=== PATIENT | female | born 1985 | race Caucasian/White ===

== ENCOUNTER 2021-10-24 00:21 | Day surgery (SDC) | payer OTHER, SELFPAY ==
[2021-10-18 15:11] VITALS: BMI 21.2
--- NOTE | 2021-10-18 15:41 | PC.NURSE ---
Addendum entered by Brianne Box RN 10/18/21 16:35: Instructions given to Christina Del RosarioJamilaFrieda Velasquez Original Note: Report to the Outpatient Waiting Room, entrance under the green pavilion located off [facility], at 1000 on 10-24-2021. OR Time: 1200. - You and your visitor will be asked a series of questions to screen for COVID 19 for your protection. - Only one visitor is allowed at this time. - The patient visitor is requested to leave or wait in car when not with patient. - A mask is required within the hospital. Patients may have clear liquids (water, carbonated beverages, clear teas, apple juice) until 3 hours prior to surgery with a maximum of 20 ounces. - No food from midnight until time of surgery - Infants may have breast milk until 4 hours before surgery, infant formula 6 hours prior to surgery. - Children will be allowed to drink immediately following surgery. If applicable, please bring a bottle or sippy cup to assist with drinking. Juice, water, soda, and popsicles are readily available. For infants on formula, please bring formula the day of surgery. Pacifiers are allowed. Take the following medications with a SIP of water the morning of surgery: tylenol if needed Medications to discontinue per physician: vitamins and supplements; ibuprofen Date to take last dose: 10-21-21; per Dr. Lopez Please no make-up, nail hungarian, hairspray, perfume, deodorant, or body powder the day of surgery. No jewelry (including any body piercings) or valuables the day of surgery, leave them at home. Please take a shower or bath the night before, or the morning of, surgery with an antibacterial soap. Wear comfortable, loose fitting clothing. Children are encouraged to wear pajamas. - Jewelry must be removed prior to entering the operating room. Rings and piercings that are not removed may be cut off. - The hospital will not accept responsibility for valuables. - Please leave all valuables, including medications, at home the day of surgery. If you are going home after surgery, a licensed reefer truck driver must drive you home. - NO public transportation without another adult. - We recommend that an adult stay with you for 24 hours following discharge. - We also recommend that you do not drive, make important decision, drink alcoholic beverages, or take any drugs that were not prescribed by your health care provider for at least 24 hours after your discharge time. For Pediatric surgeries, we recommend two adults accompany the child home (only one inside the building at this time). Follow any additional instructions given to you from your surgeon. If you or anyone in your household have experienced Covid symptoms in the past week, please notify your surgeon or the nurse liaison at the phone number below for possible testing. Telephone instructions given to and asked if any additional questions and then verbalized understanding. Patient advised to call surgeon office or pre surgery nurse liaison [phone] if any additional questions.
[2021-10-24 10:35] VITALS: BP 112/76; PULSE 79; RESP 16; TEMP 36.6; O2SAT 100
[2021-10-24] MEDS: ACETAMINOPHEN 500 MG TABLET 1000 MG PO (11:07)
[2021-10-24] MEDS: LACTATED RINGERS 1,000 ML 30 ML IV CONT (11:19)
--- NOTE | 2021-10-24 11:38 | PM.IMHP ---
H&P: HPI History of Present Illness Date/Time: 10/24/21 11:38 Chief Complaint: Heavy periods Narrative: 36 y/o nulligravida with heavy menses. An ultrasound exam is suggestive of endometrial polyps. She is here for hysteroscopy and D&C and possible polypectomy. Review of Systems Review of Systems: All systems reviewed & are unremarkable except as noted in HPI and below PMFSH Family History Family History Other Breast cancer Diabetes mellitus Social History Social History Smoking status: Never smoker Second hand tobacco smoke exposure: No Alcohol intake: current Alcohol use details: socially Substance use: never Substance use type: does not use Living arrangements: with family Spiritual care concerns: No Meds Home Medications and Allergies Home Medications Medication Instructions Recorded Confirmed Type acetaminophen 325 mg tablet 650 mg PO Q6H PRN Pain 10/18/21 10/24/21 History (Tylenol) ibuprofen 200 mg tablet 200 mg PO Q6H PRN Headache 10/18/21 10/24/21 History [id number] 200 mcg-vit K 100 1 cap PO DAILY 10/18/21 10/24/21 History mcg-lycop 500 [id number] capsule (Daily Multivitamin) Allergies Allergy/AdvReac Type Severity Reaction Status Date / Time Penicillins Allergy Intermediate Hives Verified 10/24/21 11:07 Vital Signs Vital Signs - 24 hr 10/24/21 10:35 Temperature 36.6 C Pulse Rate 79 Respiratory Rate 16 Blood Pressure 112/76 Pulse Oximetry 100 Oxygen Delivery Room Air Exam Const: Orientation/consciousness: patient oriented x3 Other: Well-developed, well-nourished female in no acute distress. Neck: Thyroid: thyroid normal Lymphatic: no lymphadenopathy noted (in neck, axilla or inguinal nodes) Resp: Effort & Inspection: normal respiratory effort Auscultation: clear to auscultation bilaterally Cardio: Rate: regular rate Rhythm: regular rhythm Heart sounds: S1 normal heart sound present and S2 normal heart sound present GI: Other: ABD: Soft, nontender, nondistended. No guarding or rebound tenderness. No hepatosplenomegaly. : General: Yes no CVA tenderness Other: External genitalia: normal female hair distribution, without lesion. Urethral meatus: no lesion, non prolapsed. Bladder: no mass, nontender Vagina: well-estrogenized, without lesion or discharge. No cystocele or rectocele. Cervix: no lesion or discharge. Uterus: small, anteverted, freely mobile, nontender Adnexa: no mass or tenderness. Anus/perineum: no lesions, nontender Back/Spine/Pelvis: Back: no CVA tenderness Skin: General skin exam: normal color and no rashes or lesions noted Neuro: General: patient oriented x3 Extrem: Other: Extremities: nontender with no edema Psych: Mental Status: mental status grossly normal Affect: normal affect Assessment and Plan Assessment and plan (1) Menorrhagia: Code(s): N92.0 - Excessive and frequent menstruation with regular cycle Status: Acute Assessment and Plan: A: Menorrhagia with likely endometrial polyp. P: I have offered her hysteroscopy with dilation and sharp curettage and possible endometrial polypectomy. She understands risks of surgery to include risks of anesthesia, risks of pain, infection, bleeding, blood products, thromboembolic phenomena and damage to adjacent structures such as bowel, bladder, ureters, blood vessels and nerves. She understands all these risks and elects to proceed with surgery. (2) Abnormal pelvic ultrasound: Code(s): R93.89 - Abnormal findings on diagnostic imaging of other specified body structures Status: Acute
--- NOTE | 2021-10-24 11:58 | WPDHPUPDATE1 ---
History and Physical Update Update Date/Time: 10/24/21 11:58 History and Physical has been reviewed, including an updated exam of the patient. There are NO changes in the patient's condition. Risks, benefits, and alternatives have been discussed and questions answered. Patient agrees to proceed with procedure.
--- NOTE | 2021-10-24 12:06 | WPDANESEPPF ---
Anes - Initial Pre Proc Eval Procedure: Operation Date: 10/24/21 12:00 Proposed Procedures p Hysteroscopy Dilation and Curettage, Polypectomy - Arsh Lopez MD Date/Time: 10/24/21 12:06 Surgeon: Arsh Lopez MD Pre Op Diagnosis: Irrg Bleeding, Uterine Polyp Patient Data Age: 36 Gender: F Height: 1.6 m Weight: 56.7 kg Last Vital Signs Temp 36.6 C 10/24/21 10:35 Pulse 79 10/24/21 10:35 Resp 16 10/24/21 10:35 BP 112/76 10/24/21 10:35 Pulse Ox 100 10/24/21 10:35 O2 Del Method Room Air 10/24/21 10:35 Allergies Allergy/AdvReac Type Severity Reaction Status Date / Time Penicillins Allergy Intermediate Hives Verified 10/24/21 11:07 Home Medications Medication Instructions Recorded Confirmed Type acetaminophen 325 mg tablet 650 mg PO Q6H PRN Pain 10/18/21 10/24/21 History (Tylenol) ibuprofen 200 mg tablet 200 mg PO Q6H PRN Headache 10/18/21 10/24/21 History [id number] 200 mcg-vit K 100 1 cap PO DAILY 10/18/21 10/24/21 History mcg-lycop 500 [id number] capsule (Daily Multivitamin) Patient hx anesthesia problems: post op nausea/vomiting Family hx anesthesia problems: none Results Review: All pre-operative results and documents have been reviewed as part of the pre-operative evaluation. [facility] Family History Family History Other Breast cancer Diabetes mellitus Social History Social History Smoking status: Never smoker Second hand tobacco smoke exposure: No Alcohol intake: current Alcohol use details: socially Substance use: never Substance use type: does not use Living arrangements: with family Spiritual care concerns: No Anes - Eval Final PreProcedure Day of Procedure 10/24/21 12:06 Patient weight: normal Heart: regular rate and rhythm Lungs: clear to auscultation Airway: Mallampati scale class II Neurological: alert and oriented Last oral intake: >/= 8 hours ASA classification: I Emergent: no Anesthetic plan: proceed Anesthesia type and monitoring: general GIVS and standard monitoring Results Review: All pre-operative results and documents have been reviewed as part of the pre-operative evaluation. Informed Consent: The patient's anesthetic plan and its attendant risks and benefits were discussed with the patient/family/POA. Questions were solicited and answers provided to the satisfaction of the patient/family/POA.
[2021-10-24] MEDS: SCOPOLAMINE 1.5 MG PATCH TRANSDERM (12:07)
[2021-10-24] MEDS: LIDOCAINE HCL 1% PF 30 ML VIAL 10 ML INFILTRATE (12:14)
--- NOTE | 2021-10-24 12:49 | P.OP_ITS ---
Procedure Note - Detailed Date of Procedure 10/24/21 Pre-op Diagnosis Menorrhagia Endometrial polyps Post-op Diagnosis Same Procedure Performed Hysteroscopy Dilation and fractional sharp curettage Surgeon Arsh Lopez MD Anesthesia MAC and Local (1% lidocaine) Findings Several apparent endocervical polyps noted, several endometrial polyps noted. Both tubal ostia seen. Description of Procedure The patient was taken to the operating room where she was prepared and draped in the usual sterile fashion in the dorsal lithotomy position. The bladder was drained with a red rubber catheter. A sterile speculum was placed into the vagina. The anterior lip of the cervix was grasped with single-tooth tenaculum. Ten mL of 1% lidocaine was administered in a paracervical block. Sharp curettage was performed of the cervix, and apparent polyps were passed off to be sent to pathology. The cervix was then gently dilated using Hegar dilators until an 8 mm dilator could be passed. Hysteroscopy was performed using sterile saline as a distention medium. Findings are as noted above. Sharp curettage was then performed, and endometrial curettings were collected on a Telfa pad and passed off to be sent to pathology. Hemostasis was excellent. Sponge, lap, n eedle and instrument counts were correct. The patient was awakened and taken to the recovery room in stable condition. I was present and scrubbed through the entire procedure. Implants None Estimated Blood Loss 5 Drains No Packing No Pathology Yes (Endocervical and endometrial curettings) Complications None Condition Stable Disposition PACU
[2021-10-24 13:00] VITALS: BP 106/70; PULSE 74; RESP 12; O2SAT 100
[2021-10-24 13:30] VITALS: BP 99/60
[2021-10-24 14:00] VITALS: BP 92/68; PULSE 70; RESP 12
[2021-10-24 14:30] VITALS: BP 94/68; PULSE 75; RESP 12
== END 2021-10-24 15:00 | disposition home or self-care (01) ==
PROVIDERS: PCP Family Medicine Sports Medicine; Visit Provider Obstetrics & Gynecology
PROC: 0U5B8ZZ Destruction of Endometrium, Via Natural or Artificial Opening Endoscopic (ICD-10-PCS; CPT 58563; principal; 2021-10-24 12:00)
DX: N92.0 Excessive and frequent menstruation with regular cycle (principal); N84.1 Polyp of cervix uteri; N84.0 Polyp of corpus uteri
CPT/HCPCS: 58558; 88305; A9270; J1100; J2250; J2370; J2405; J2704; J3010; J7030; J7120